=== PATIENT | male | born 1980 | race Caucasian/White ===

== ENCOUNTER 2020-10-11 12:01 | Emergency (ER) | payer OTHER ==
[~2020-10-11] VITALS: Ht 170.2 cm; Wt 81.2 kg
[2020-10-11 12:03] VITALS: BP 138/78
--- NOTE | 2020-10-11 12:05 | NUR ---
Patient ambulated to bed 3.
--- NOTE | 2020-10-11 12:08 | NUR ---
PT LAC SOAKED IN WARM WATER.
--- NOTE | 2020-10-11 12:20 | NUR ---
40/M presents to ED with c/o laceration to right hand 5th digit. Patient states one hour ago he tripped over his sons skateboard and landed on his hand, laceration noted to right hand at the base of the 5th digit. Patient able to move extremities appropriately, pulses and sensation equal bilaterally, bleeding controlled at this time.
[2020-10-11] MEDS ORDERED: BACITRACIN OINT 500 UNITS/GM PKT TP ONE (12:30)
[2020-10-11] MEDS ORDERED: LIDOCAINE MPF 1% 10 MG/ML VIAL INJ ONE (12:30)
--- NOTE | 2020-10-11 12:55 | NUR ---
QUINN Caraballo bedside for laceration repair.
[2020-10-11] MEDS ORDERED: BACI1PAC6 TP (13:19)
[2020-10-11] MEDS ORDERED: IBUP-2213 PO (13:19)
--- NOTE | 2020-10-11 13:19 | NUR ---
PT LAC CLEANED WITH NORMAL SALINE AND BACITRACIN WAS APPLIED TO PTS LAC, PT LAC DRESSED WITH NON-ADHERENT GUAZE PAD AND WRAPPED WITH 2" GUAZE ROLL PT PLACED IN SHORT ALUMINUM FINGER SPLINT, [facility] BEFORE AND AFTER
[2020-10-11 13:28] VITALS: BP 138/78
--- NOTE | 2020-10-11 13:28 | NUR ---
Patient discharged with v/s stable. Written and verbal after care instructions given and explained. Patient alert, oriented and verbalized understanding of instructions. Ambulatory with steady gait. All questions addressed prior to discharge. ID band removed. Patient advised to follow up with PMD. Rx of Bacitracin and Ibuprofen given. Patient educated on indication of medication including possible reaction and side effects. Opportunity to ask questions provided and answered.
== END 2020-10-11 13:28 | disposition home or self-care (01) ==
LOC: MED 12:01
DX: S61.411A Laceration without foreign body of right hand, initial encounter (principal); R03.0 Elevated blood-pressure reading, without diagnosis of hypertension; Z79.899 Other long term (current) drug therapy; W18.09XA Striking against other object with subsequent fall, initial encounter; Y93.89 Activity, other specified; Y92.89 Other specified places as the place of occurrence of the external cause; Y99.8 Other external cause status
CPT/HCPCS: 12001; 99283; J2001